=== PATIENT | female | born 1955 | race Caucasian/White ===

== ENCOUNTER 2025-08-19 13:00 | Outpatient (CLI) | payer MEDICARE, BC ==
[~2025-08-19 13:00] MED LIST: APIX5TAB3 PO; ESTR42.53 VG; LEFL10TA20 PO; LEVO75TA7 PO; METF-436 PO; METO-539 PO; MULT-1085 PO; ONDA-243 PO; PANT-47 PO; PRE1T PO; ROSU20TA98 PO; SEMA2PEN SUBCUT; SUCR1TAB PO; VALS40TA2 PO; ZOLP-678 PO
[2025-08-19 13:24] LABS: MEAN PLATELET VOLUME 7.8 FL (7.4-10.4); RED CELL DISTRIBUTION WIDTH 14.1 % (11.5-14.5)
[2025-08-19 13:35] LABS: CREATININE 0.72 MG/DL (0.40-0.90); TOTAL CARBON DIOXIDE 27.8 MMOL/L (24-32); eGFR 80 ML/MIN
--- NOTE | 2025-08-20 19:31 | RADIOLOGY REPORT ---
CT POST WATCHMAN INDICATION: PRESENCE OF OTHER CARDIAC IMPLANTS AND GRAFTS TECHNIQUE: CT cardiac imaging for pulmonary vein analysis has been obtained. 3- D, MIP, and MPR images obtained. All CT scans at this facility use dose modulation, iterative reconstruction, and/or weight based dosing when appropriate to reduce radiation dose to as low as reasonably achievable. COMPARISON: None available at the time of dictation. STUDY QUALITY: Good FINDINGS: LEFT ATRIAL APPENDAGE: Successful complete occlusion of the left atrial appendage without evidence of contrast extension beyond the occlusion device. CARDIAC CHAMBERS: Mild cardiomegaly. Dilation of the left ventricle diameter. Correlate with clinical exam for diastolic heart failure. Variant anatomy with a long segment common trunk of the left pulmonary veins. OTHER: No aneurysmal dilation identified. IMPRESSION: Successful complete occlusion of the left atrial appendage without evidence of contrast extension beyond the occlusion device.
== END 2025-08-19 23:59 | disposition home or self-care (01) ==
LOC: RAD 13:00
PROVIDERS: ATTEND Student in an Organized Health Care Education/Training Program
DX: I51.7 Cardiomegaly (principal); I77.819 Aortic ectasia, unspecified site; Z95.818 Presence of other cardiac implants and grafts
CPT/HCPCS: 36415; 71275; 75572; 80053; 85025; Q9967